=== PATIENT | male | born 2000 | race Hispanic/Latino ===

== ENCOUNTER 2019-09-11 09:59 | Emergency (ER) | payer OTHER ==
[~2019-09-11] VITALS: Ht 172.7 cm; Wt 66.0 kg
[2019-09-11 11:34] LABS: BASO % 0.5 % (0.0-1.0); EOS # 0.1 10^3/uL (0.0-0.5); EOS % 1.5 % (0.0-3.0); HEMATOCRIT 47.2 % (42.0-52.0); HEMOGLOBIN 16.8 g/dl (13.5-17.5); LYMPH # 2.1 10^3/uL (1.5-5.0); LYMPH % 35.9 % (24.0-44.0); MEAN CORPUSCULAR HEMOGLOBIN 31.8 pg (27.0-33.0); MEAN CORPUSCULAR HGB CONC 35.6 g/dl (32.0-36.5); MEAN CORPUSCULAR VOLUME 89.2 fl (80.0-96.0); MONO # 0.5 10^3/uL (0.0-0.8); NEUTROPHILS # 3.1 10^3/uL (1.5-8.5); NEUTROPHILS % 52.9 % (36.0-66.0); PLATELET COUNT, AUTOMATED 219 10^3/uL (150-450); RED BLOOD COUNT 5.29 10^6/uL (4.30-6.10); WHITE BLOOD COUNT 5.9 10^3/uL (4.0-10.0)
[2019-09-11 11:58] LABS: CHLAMYDIA DNA AMPLIFICATION NEGATIVE (NEGATIVE); GC DNA AMPLIFICATION NEGATIVE (NEGATIVE)
[2019-09-11 12:10] LABS: ALBUMIN 4.3 GM/DL (3.2-5.2); ALT/SGPT 29 U/L (12-78); BILIRUBIN,TOTAL 0.8 MG/DL (0.2-1.0); BLOOD UREA NITROGEN 11 MG/DL (7-18); CARBON DIOXIDE LEVEL 29 MEQ/L (21-32); CHLORIDE LEVEL 106 MEQ/L (98-107); GLUCOSE, FASTING 94 MG/DL (70-100); POTASSIUM SERUM 4.1 MEQ/L (3.5-5.1); SODIUM LEVEL 141 MEQ/L (136-145); TOTAL PROTEIN 7.7 GM/DL (6.4-8.2)
[2019-09-11] MEDS ORDERED: CIPR-249 PO (12:15)
[2019-09-11] MEDS ORDERED: IBUP80TA PO (12:15)
[2019-09-11 12:18] VITALS: BP 131/69
--- NOTE | 2019-09-11 12:43 | REP ---
REASON: Pain on the right. PRIORS: None. Right testicle 4.7 x 2.4 x 3.2 cm and left 4.5 x 2.3 x 2.6 cm. The testicular parenchymal and vascular pattern is normal bilaterally. There is no spermatocele, hydrocele, or varicocele on either side. Right testicular RI 0.64, left 0.52. IMPRESSION: The examination is within normal limits. Electronically Signed by Jim Long DO 09/11/2019 12:57 P
== END 2019-09-11 12:23 | disposition home or self-care (01) ==
LOC: M ED 09:59
DX: N45.1 Epididymitis (principal); F17.200 Nicotine dependence, unspecified, uncomplicated

== ENCOUNTER 2020-09-05 12:09 | Emergency (ER) | payer OTHER ==
[~2020-09-05] VITALS: Ht 172.7 cm; Wt 68.2 kg
[~2020-09-05 12:09] MED LIST: CIPR-249 PO; IBUP80TA PO
[2020-09-05 15:04] VITALS: BP 133/80
== END 2020-09-05 15:06 | disposition home or self-care (01) ==
LOC: M ED 12:09
DX: J00 Acute nasopharyngitis [common cold] (principal)

== ENCOUNTER 2020-11-04 08:42 | Emergency (ER) | payer OTHER ==
[~2020-11-04] VITALS: Ht 172.7 cm; Wt 68.3 kg
[2020-11-04 08:43] VITALS: BP 133/93
== END 2020-11-04 14:03 | disposition left against medical advice (07) ==
LOC: M ED 08:42
DX: Z53.21 Procedure and treatment not carried out due to patient leaving prior to being seen by health care provider (principal)